=== PATIENT | female | born 1945 | race Caucasian/White ===

== ENCOUNTER → 2016-06-10 | Outpatient (CLI) | payer MEDICARE ==
--- NOTE | 2016-06-10 15:55 | REPMRS ---
Patient History Family history of colorectal cancer in mother and ovarian cancer in maternal aunt. The patient states she has not had a clinical breast exam in over a year. Patients prior mammograms were done over 10 years ago and no longer available Digital Mammo Screening Bilat: June 10, 2016 - Exam #: [id number] Bilateral CC and MLO view(s) were taken. Technologist: Darling Tom, Technologist FINDINGS: There are scattered fibroglandular densities. There is no evidence of cancer on this mammogram. Large coarse benign appearing calcifications are present. ASSESSMENT: BI-RADS/ACR category 2 mammogram. Benign finding(s). Recommendation Routine screening mammogram of both breasts in 1 year (for women over age 40). This mammogram was interpreted with the aid of an FDA-approved computer-aided dectection system. Electronically Signed By: Victoriano Charles MD 06/10/16 [id number]
== END ==
LOC: M RAD 15:03 → MERGE 15:30
PROVIDERS: ATTEND Family Medicine
DX: Z12.31 Encounter for screening mammogram for malignant neoplasm of breast (principal)

== ENCOUNTER → 2016-06-10 | Outpatient (CLI) | payer MEDICARE | LOC: M CARPUL 13:59 | PROVIDERS: ATTEND Family Medicine | DX: Z12.31 Encounter for screening mammogram for malignant neoplasm of breast (principal); R05 Cough | CPT/HCPCS: 94010; 94726; 94729; G0202 ==

== ENCOUNTER → 2016-08-12 | Outpatient (CLI) | payer MEDICARE ==
--- NOTE | 2016-08-12 16:06 | REP ---
Noncontrast CT study of the chest: Low-dose lung cancer screening study. History: Tobacco use. Comparison chest x-ray: 01/06/2006. Findings: There is a 3 mm noncalcified pulmonary nodular density in the periphery of the left upper lobe near the apex on page 14 of 109 at the today's study. No other pulmonary nodular density or mass lesion is seen. Lung silva are otherwise clear. No pleural effusion is seen. There is some left and right coronary artery vascular calcification. Scan is otherwise unremarkable. Impression: Positive study. 3 mm noncalcified nodule left upper lobe. By Fleischner's nurse Society criteria, followup chest CT study recommended in 12 months. Signed by Ari Tomlin MD 08/12/2016 05:45 P
== END ==
LOC: M RAD 12:44
PROVIDERS: ATTEND Family Medicine
DX: F17.200 Nicotine dependence, unspecified, uncomplicated (principal)

== ENCOUNTER → 2016-09-22 | Outpatient (CLI) | payer MEDICARE ==
[~2016-09-22] VITALS: Ht 167.6 cm; Wt 76.2 kg
[~2016-09-22] MED LIST: ATOR1TAB19 PO; LIDOCAINE 2% INJ 100 MG/5 ML SDV (FOR ANES.) As Ordered ONE; NS 1,000 ML IV SCH; PROPOFOL 200 MG/20 ML VIAL As Ordered ONE
--- NOTE | 2016-09-22 13:46 | ROOR ---
Patient Name: Katie Waldron Procedure Date: 09/22/2016 1:31 PM Date of : 1945 Age: 71 Room: [facility] Gender: Female Note Status: Finalized Procedure: Upper GI endoscopy Indications: Heartburn Providers: Darwin Soliz MD Referring MD: Elinor Casanova MD Requesting Provider: Medicines: Monitored Anesthesia Care Complications: No immediate complications. Procedure: Pre-Anesthesia Assessment: - The heart rate, respiratory rate, oxygen saturations, blood pressure, adequacy of pulmonary ventilation, and response to care were monitored throughout the procedure. The Endoscope was introduced through the mouth, and advanced to the second part of duodenum. The upper GI endoscopy was accomplished without difficulty. The patient tolerated the procedure well. Findings: The Z-line was irregular and was found 40 cm from the incisors. A small hiatal hernia was present. No other significant abnormalities were identified in a careful examination of the stomach. The exam of the duodenum was otherwise normal. Impression: - Z-line irregular, 40 cm from the incisors. - Small hiatal hernia. - No specimens collected. - The examination was otherwise normal. Recommendation: - Patient has a contact number available for emergencies. The signs and symptoms of potential delayed complications were discussed with the patient. Return to normal activities tomorrow. Written discharge instructions were provided to the patient. - High fiber diet. - Discharge patient to home. - Continue present medications. - Follow an antireflux regimen. - Return to referring physician. - The findings and recommendations were discussed with the patient's family. Darwin Soliz MD Darwin Soliz MD 09/22/2016 1:45:58 PM This report has been signed electronically. Number of Addenda: 0 Note Initiated On: 09/22/2016 1:31 PM Estimated Blood Loss: Estimated blood loss: none.
--- NOTE | 2016-09-22 14:08 | ROOR ---
Patient Name: Katie Waldron Procedure Date: 09/22/2016 1:32 PM Date of : 1945 Age: 71 Room: [facility] Gender: Female Note Status: Finalized Procedure: Colonoscopy to Cecum + Cold Snare Polypectomy Indications: Screening for colorectal malignant neoplasm Providers: Darwin Soliz MD Referring MD: Elinor Casanova MD Requesting Provider: Medicines: Monitored Anesthesia Care Complications: No immediate complications. Procedure: Pre-Anesthesia Assessment: - The heart rate, respiratory rate, oxygen saturations, blood pressure, adequacy of pulmonary ventilation, and response to care were monitored throughout the procedure. The Colonoscope was introduced through the anus and advanced to the cecum, identified by appendiceal orifice and ileocecal valve. The colonoscopy was performed without difficulty. The patient tolerated the procedure well. The quality of the bowel preparation was fair. Findings: The perianal and digital rectal examinations were normal. Non-bleeding internal hemorrhoids were found during retroflexion. The hemorrhoids were small and Grade I (internal hemorrhoids that do not prolapse). Multiple small and large-mouthed diverticula were found in the recto-sigmoid colon, sigmoid colon and descending colon. Multiple sessile polyps were found in the entire colon. The polyps were small in size. These polyps were removed with a cold snare. Resection and retrieval were complete. The exam was otherwise without abnormality on direct and retroflexion views. Impression: - Preparation of the colon was fair. - Non-bleeding internal hemorrhoids. - Diverticulosis in the recto-sigmoid colon, in the sigmoid colon and in the descending colon. - Multiple small polyps in the entire colon, removed with a cold snare. Resected and retrieved. - The examination was otherwise normal on direct and retroflexion views. - The exam was otherwise normal to the cecum. Recommendation: - Patient has a contact number available for emergencies. The signs and symptoms of potential delayed complications were discussed with the patient. Return to normal activities tomorrow. Written discharge instructions were provided to the patient. - High fiber diet. - Discharge patient to home. - Continue present medications. - Await pathology results. - Telephone GI clinic for pathology results in 1 week. - Check Portal Online for Path Results.([email or web address]) - Repeat colonoscopy for surveillance based on pathology results. - The findings and recommendations were discussed with the patient's family. Darwin Soliz MD Darwin Soliz MD 09/22/2016 2:08:03 PM This report has been signed electronically. Number of Addenda: 0 Note Initiated On: 09/22/2016 1:32 PM Estimated Blood Loss: Estimated blood loss: none.
[2016-09-22 14:35] VITALS: BP 128/69
== END | disposition home or self-care (01) ==
LOC: M OPP 12:36
PROVIDERS: ATTEND Internal Medicine Gastroenterology
DX: Z12.11 Encounter for screening for malignant neoplasm of colon (principal); D12.6 Benign neoplasm of colon, unspecified; K64.0 First degree hemorrhoids; K57.30 Diverticulosis of large intestine without perforation or abscess without bleeding; R12 Heartburn; K22.8 Other specified diseases of esophagus; K44.9 Diaphragmatic hernia without obstruction or gangrene; I10 Essential (primary) hypertension; R23.3 Spontaneous ecchymoses; R06.02 Shortness of breath; F17.210 Nicotine dependence, cigarettes, uncomplicated; Z80.3 Family history of malignant neoplasm of breast; Z80.41 Family history of malignant neoplasm of ovary; Z79.899 Other long term (current) drug therapy

== ENCOUNTER → 2016-10-07 | Outpatient (CLI) | payer MEDICARE ==
[~2016-10-07] MED LIST changes: -LIDOCAINE 2% INJ 100 MG/5 ML SDV (FOR ANES.) As Ordered ONE; -NS 1,000 ML IV SCH; -PROPOFOL 200 MG/20 ML VIAL As Ordered ONE
--- NOTE | 2016-10-08 09:00 | DEXA ---
AP SPINE L1 - L4 1.471 2.2 3.6 LT FEMUR TOTAL 0.927 -0.6 0.6 RT FEMUR TOTAL 0.909 -0.8 0.5 TOTAL BODY TOTAL OTHER DUAL FEMUR FRAX* ASSESSMENT Risk factors: Tobacco use. 10 year probability of fracture Major osteoporotic fracture 9.0 % Hip fracture 1.6 % COMMENTS: Normal bone densitometry of the spine. There is low bone density of the hips. FOLLOW-UP: Recommendation for the next bone density exam: 2 years. SHANNAN
== END ==
LOC: M WHC 09:24
PROVIDERS: ATTEND Family Medicine
DX: Z13.820 Encounter for screening for osteoporosis (principal); M89.9 Disorder of bone, unspecified

== ENCOUNTER → 2016-10-29 | Outpatient (REF) | payer MEDICARE | LOC: M SFHCPLAZ 08:12 | PROVIDERS: ATTEND Family Medicine | DX: E78.5 Hyperlipidemia, unspecified (principal) ==

== ENCOUNTER → 2017-04-23 | Outpatient (CLI) | payer MEDICARE ==
--- NOTE | 2017-04-26 06:46 | ECHO ---
DATE OF PROCEDURE: 04/23/2017 DATE OF : 1945 AGE: 71 GENDER: Female HEIGHT: 67 inches WEIGHT: 152 pounds BODY SURFACE AREA: 31.8 m2 OUTPATIENT REFERRING PHYSICIAN: Dr. Elinor Casanova INDICATION: Murmur. MEASUREMENTS: 2-D Measurements: RV: 2.4 cm LV: 4.2 cm Septum: 1.0 cm Posterior wall: 1.0 cm Aortic root: 2.5 cm LA: 3.4 cm LVEF: 65% Doppler Measurements: AV: 2.8 m/s LVOT: 0.84 m/s LVOT diameter 2.1 cm MV: E 120 A 110 EA ratio 1.1 Early mitral deceleration time: 261 ms E prime: 7.1 A prime: 6 E/E prime ratio: 16.3 PV: 0.8 m/s Pulmonary artery acceleration time: 138 ms RVSP: 30 mmHg IVC: 2.0 cm COMMENTS: Normal sinus rhythm without intraventricular conduction disturbance. Normal cardiac chamber sizes and wall thickness. On real-time imaging from the parasternal and apical projections wall motion was symmetrical and normal to hyperkinetic. Mildly thickened mitral annulus, but normal leaflet thickness and excursion with no posterior systolic buckling. Three equal size aortic cusps were moderately thickened with reduced cusp separation. Normal aortic root size. No apparent intracardiac mass or pericardial effusion. Color flow Doppler study taken from the parasternal and projection showed mild aortic, mild to moderate mitral and mild tricuspid insufficiency. Guided continuous wave Doppler of her aortic valve and pulsed Doppler study of her LV outflow tract taken from the apical long axis and five chamber projection showed a significantly increased peak systolic velocity. The mean left ventricle outflow tract gradient was 20 mmHg with a dimensionless index of 0.29, all in keeping with a moderate degree of calcific aortic stenosis. Pulsed and continuous wave Doppler of her LV inflow tract taken from the apical four-chamber projection showed normal diastolic filling velocities against mitral stenosis. The filling pattern was normal, but her early mitral deceleration time was prolonged and tissue Doppler also supported a degree of impaired LV diastolic function with at least mildly elevated mean left atrial pressure. Pulsed and continuous wave Doppler of her pulmonary trunk showed a normal peak systolic velocity against RV outflow tract obstruction. Her pulmonary artery acceleration time was normal against an elevated pulmonary vascular resistance. Guided continuous wave Doppler of her tricuspid valve allowed our estimation of her right ventricular systolic pressure (upper limits of normal). Her inferior vena cava was of normal size with fairly normal respiratory collapse against an elevated central venous pressure. CONCLUSIONS: Moderate calcific aortic stenosis with mild insufficiency. Mild mitral annular calcification without inflow tract obstruction, but mild-moderate insufficiency. Normal aortic root size. Normal left ventricular size, wall thickness and hyperkinetic wall motion. Normal left atrial size with Doppler signs of an impairment of LV diastolic function and at least mildly elevated mean left atrial pressure. Normal right heart chamber sizes and wall motion with estimated pulmonary arterial pressure upper limits of normal to mildly increased. Normal IVC size against an elevated central venous pressure. We would recommend a followup study in 1-2 years time to reassess her aortic valve.
== END ==
LOC: M CARPUL 13:37
PROVIDERS: ATTEND Family Medicine
DX: R01.1 Cardiac murmur, unspecified (principal); R93.1 Abnormal findings on diagnostic imaging of heart and coronary circulation

== ENCOUNTER → 2017-10-01 | Outpatient (CLI) | payer MEDICARE | LOC: M WHC 10:25 | DX: Z12.31 Encounter for screening mammogram for malignant neoplasm of breast (principal) | CPT/HCPCS: 77067 ==

== ENCOUNTER → 2017-10-07 | Outpatient (CLI) | payer MEDICARE | LOC: M RAD 13:03 | DX: F17.210 Nicotine dependence, cigarettes, uncomplicated (principal) | CPT/HCPCS: G0297 ==

== ENCOUNTER → 2017-12-13 | Outpatient (CLI) | payer MEDICARE | LOC: M RAD 15:52 | DX: R20.0 Anesthesia of skin (principal); I20.8 Other forms of angina pectoris; F17.210 Nicotine dependence, cigarettes, uncomplicated; H35.3130 Nonexudative age-related macular degeneration, bilateral, stage unspecified | CPT/HCPCS: 70551 ==

== ENCOUNTER → 2018-09-27 | Outpatient (REF) | payer MEDICARE | LOC: M SFHCPLAZ 09:02 | PROVIDERS: ATTEND Family Medicine | DX: R73.01 Impaired fasting glucose (principal) ==

== ENCOUNTER → 2018-10-03 | Outpatient (CLI) | payer MEDICARE ==
--- NOTE | 2018-10-03 16:07 | REP ---
REASON: Tobacco abuse. All priors were reviewed. As per the protocol only lung window images were sent to the read station for interpretation. The 3 mm sized nodule seen in the left upper lobe is completely stable. There are no new abnormal nodules, masses, or opacities. Grossly the mediastinal, pulmonary terese, imaged upper abdomen, and imaged osseous structures are unchanged. IMPRESSION: Stable chest CT as described above. Lung RADS category 2. Electronically Signed by Erwin Terrazas DO 10/03/2018 04:54 P
== END ==
LOC: M RAD 10:16
PROVIDERS: ATTEND Family Medicine
DX: Z12.2 Encounter for screening for malignant neoplasm of respiratory organs (principal); Z87.891 Personal history of nicotine dependence

== ENCOUNTER → 2018-10-19 | Outpatient (CLI) | payer MEDICARE ==
--- NOTE | 2018-10-19 12:27 | REPMRS ---
Patient History The patient states she has not had a clinical breast exam in over a year. Patient is postmenopausal. Family history of colorectal cancer in mother, ovarian cancer in maternal aunt, colorectal cancer at age 50 or over in sister. No Hormone Replacement Therapy Digital Woman Screen Mammo: October 19, 2018 - Exam #: [id number] Bilateral CC and MLO view(s) were taken. Technologist: Lori Caal, Technologist Prior study comparison: October 01, 2017, digital woman screen mammo performed at [facility]. June 10, 2016, bilateral digital mammo screening bilat, performed at [facility]. FINDINGS: There are scattered fibroglandular densities. There is a moderate amount of residual fibroglandular tissue which is fairly symmetric. There is no interval development of dominant mass, architectural distortion, or clustered microcalcification typical of malignancy. There has been no change in the appearance of the mammogram from the prior studies. 3-D tomosynthesis shows no additional findings. Assessment: BI-RADS/ACR category 1 mammogram. Negative Mammogram. Recommendation Routine screening mammogram of both breasts in 1 year (for women over age 40). This patient's Lifetime Breast Cancer RIsk is estimated at 2.0 %. This mammogram was interpreted with the aid of an FDA-approved computer-aided dectection system. Electronically Signed By: Sage Tomlin MD 10/19/18 1849
== END ==
LOC: M WHC 09:57
PROVIDERS: ATTEND Family Medicine
DX: Z12.31 Encounter for screening mammogram for malignant neoplasm of breast (principal); Z78.0 Asymptomatic menopausal state

== ENCOUNTER 2018-11-15 10:56 | Emergency (ER) | payer MEDICARE ==
[~2018-11-15] VITALS: Ht 167.6 cm; Wt 71.4 kg
[2018-11-15 12:12] LABS: BASO % 0.6 % (0.0-1.0); EOS # 0.1 10^3/uL (0.0-0.50); EOS % 1.4 % (0.0-3.0); HEMATOCRIT 36.9 % (36.0-47.0); LYMPH # 1.7 10^3/uL (1.5-4.5); LYMPH % 25.8 % (24.0-44.0); MEAN CORPUSCULAR HEMOGLOBIN 27.5 pg (27.0-33.0); MEAN CORPUSCULAR HGB CONC 32.5 g/dl (32.0-36.5); MEAN CORPUSCULAR VOLUME 84.4 fl (80.0-96.0); MONO # 0.3 10^3/uL (0.0-0.8); MONO % 5.3 % (0.0-5.0); NEUTROPHILS # 4.3 10^3/uL (1.8-7.7); NEUTROPHILS % 66.7 % (36.0-66.0); PLATELET COUNT, AUTOMATED 192 10^3/uL (150-450); RED BLOOD COUNT 4.37 10^6/uL (4.00-5.40); WHITE BLOOD COUNT 6.4 10^3/uL (4.0-10.0)
--- NOTE | 2018-11-15 12:44 | REP ---
CHEST, TWO VIEWS: No comparison. Two views of the chest are performed. There is no acute infiltrate or pulmonary edema. The heart is normal in size. There is a calcification of the thoracic aorta. The mediastinal silhouette is unremarkable. There are minor degenerative changes of the spine. IMPRESSION: No acute pulmonary disease. Electronically Signed by Victoriano Charles MD 11/15/2018 07:36 P
[2018-11-15] MEDS ORDERED: ATOR40TA75 (12:51)
[2018-11-15] MEDS ORDERED: CLOP75TA2 (12:51)
[2018-11-15] MEDS ORDERED: AMLO5TAB6 (12:51)
[2018-11-15] MEDS ORDERED: OMEP-218 (12:51)
[2018-11-15] MEDS ORDERED: METF500T4 (12:51)
[2018-11-15] MEDS ORDERED: NITR0.4S14 (12:51)
[2018-11-15] MEDS ORDERED: ISOS30TA4 (12:51)
[2018-11-15] MEDS ORDERED: SYST1SOL4 (12:51)
[2018-11-15] MEDS ORDERED: BISO5TAB5 (12:51)
[2018-11-15 12:52] LABS: ALBUMIN 3.6 GM/DL (3.2-5.2); ALT/SGPT 15 U/L (12-78); BILIRUBIN,DIRECT 0.2 MG/DL (0.0-0.2); BILIRUBIN,TOTAL 0.4 MG/DL (0.2-1.0); BLOOD UREA NITROGEN 18 MG/DL (7-18); CARBON DIOXIDE LEVEL 27 MEQ/L (21-32); CHLORIDE LEVEL 105 MEQ/L (98-107); CK-MB VALUE MASS 1.5 NG/ML (<3.6); CPK CREATINE PHOSPHOKINASE 51 U/L (26-192); CREATININE FOR GFR 0.97 MG/DL (0.55-1.30); FREE T4 1.19 NG/DL (0.76-1.46); GLOMERULAR FILTRATION RATE > 60.0 (>39); GLUCOSE, FASTING 140 MG/DL (70-100); LIPASE 69 U/L (73-393); MB/CK RELATIVE INDEX 2.94 (< OR =4); POTASSIUM SERUM 4.4 MEQ/L (3.5-5.1); SODIUM LEVEL 139 MEQ/L (136-145); TOTAL PROTEIN 7.3 GM/DL (6.4-8.2); TROPONIN I 0.02 NG/ML (< 0.10)
[2018-11-15] MEDS ORDERED: KETOROLAC 30 MG/ML VIAL (J1885) IV ONE (13:15)
--- NOTE | 2018-11-15 13:43 | REP ---
CT Head without contrast HISTORY: Headache COMPARISON: Or 12/13/2017 A small area of decreased attenuation is present in the left cerebellum. This represents an old infarction. Areas of decreased attenuation are present in the periventricular white matter. This represents small-vessel ischemic disease. There is no intraparenchymal hemorrhage, acute infarct, mass or midline shift. The ventricular system and cortical sulci are dilated consistent with minimal volume loss. There is no extra cerebral collection. There is no fracture. The visualized sinuses are clear. IMPRESSION: 1. 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 2. Small vessel ischemic disease. 3. Minimal volume loss. Electronically Signed by Sean Vega MD 11/15/2018 01:34 P
[2018-11-15] MEDS ORDERED: amLODIPine 5 MG TAB PO ONE (15:45)
[2018-11-15] MEDS ORDERED: LISI-542 PO (15:50)
[2018-11-15] MEDS ORDERED: AMLO10TA5 PO (15:50)
[2018-11-15] MEDS ORDERED: TYLETAB14 PO (15:52)
[2018-11-15] MEDS ORDERED: ACET1TAB55 PO (15:53)
[2018-11-15 16:02] VITALS: BP 165/71
[2018-11-15 16:25] VITALS: BP 168/90
--- NOTE | 2018-11-16 16:07 | ECGEPIP ---
[facility] - ED Test Date: 2018-11-15 Pat Name: ANAI GEORGES Department: Room: - Gender: Female Tow Operator: IGOR : 1945 Requested By: DELVIN Butler Order Number: [id number] Reading MD: Ruby Sarabia Measurements Intervals [place] Rate: 59 P: 38 MI: 164 QRS: 16 QRSD: 87 T: 154 QT: 418 QTc: 415 Interpretive Statements SINUS BRADYCARDIA POSSIBLE RIGHT VENTRICULAR CONDUCTION DELAY ST DEVIATION AND MODERATE T-WAVE ABNORMALITY, CONSIDER LATERAL ISCHEMIA, CLINICAL CORRELATION NO PRIOR FOR COMPARISON Electronically Signed on 11-16-2018 16:07:26 EDT by Ruby Sarabia
== END 2018-11-15 16:32 | disposition home or self-care (01) ==
LOC: M ED 10:56
DX: I10 Essential (primary) hypertension (principal); R51 Headache; R00.1 Bradycardia, unspecified; R01.1 Cardiac murmur, unspecified; E11.9 Type 2 diabetes mellitus without complications; E78.5 Hyperlipidemia, unspecified; F32.9 Major depressive disorder, single episode, unspecified; R91.1 Solitary pulmonary nodule; K44.9 Diaphragmatic hernia without obstruction or gangrene; H35.30 Unspecified macular degeneration; Z86.73 Personal history of transient ischemic attack (TIA), and cerebral infarction without residual deficits; F17.200 Nicotine dependence, unspecified, uncomplicated; Z79.899 Other long term (current) drug therapy; Z79.02 Long term (current) use of antithrombotics/antiplatelets; Z79.84 Long term (current) use of oral hypoglycemic drugs
CPT/HCPCS: 36415; 70450; 71046; 80048; 80076; 82550; 82553; 83690; 84439; 84443; 84484; 85025; 93005; 93041; 94760; 96374; 99285; J1885

== ENCOUNTER → 2018-11-25 | Outpatient (REF) | payer MEDICARE ==
[~2018-11-25] MED LIST changes: +ACET1TAB55 PO; +AMLO10TA5 PO; +AMLO5TAB6; +ATOR40TA75; +BISO5TAB5; +CLOP75TA2; +ISOS30TA4; +LISI-542 PO; +METF500T4; +NITR0.4S14; +OMEP-218; +SYST1SOL4; +TYLETAB14 PO
[2018-11-25 14:10] LABS: CALCIUM LEVEL 9.3 MG/DL (8.8-10.2); CREATININE FOR GFR 1.03 MG/DL (0.55-1.30); GLOMERULAR FILTRATION RATE 56.2 (>39); POTASSIUM SERUM 4.3 MEQ/L (3.5-5.1)
== END ==
LOC: M SFHCPLAZ 11:14
PROVIDERS: ATTEND Family Medicine
DX: I10 Essential (primary) hypertension (principal)

== ENCOUNTER → 2018-12-29 | Outpatient (CLI) | payer MEDICARE ==
[~2018-12-29] MED LIST changes: +ISOVUE-370 76% 100ML VIAL (Q9967) As Ordered ONE
--- NOTE | 2018-12-29 11:31 | REPVR ---
EXAM: CT Angiography Neck With Contrast EXAM DATE/TIME: 12/29/2018 9:48 AM CLINICAL HISTORY: 73 years old, female; Condition or disease; Occlusion or stenosis of cerebral arteries; Additional info: Occlusion and stenosis of bilateral carotid arteries TECHNIQUE: Imaging protocol: Axial computed tomographic angiography images of the neck with intravenous contrast using CT angiography protocol. Coronal and sagittal reformatted images were created and reviewed. 3D rendering: MIP and 3D reconstructed images were created and reviewed. Radiation optimization: All CT scans at this facility use at least one of these dose optimization techniques: automated exposure control; mA and/or kV adjustment per patient size (includes targeted exams where dose is matched to clinical indication); or iterative reconstruction. Contrast material: ISOVUE 370;Contrast volume: 100 ml;Contrast route: IV; COMPARISON: No relevant prior studies available. FINDINGS: VASCULATURE: Right common carotid artery: There are mild calcified atherosclerotic changes involving the right common carotid artery bifurcation. Right internal carotid artery: See Left Internal Carotid Artery Finding. Right external carotid artery: Unremarkable. No occlusion or stenosis of the origin. Right vertebral artery: Unremarkable. No stenosis. No dissection or occlusion. Left common carotid artery: There are moderate calcified atherosclerotic changes involving the left common carotid artery bifurcation. Left internal carotid artery: There are severe calcified atherosclerotic changes involving the origin of the left internal carotid artery, accounting for approximately 98% stenosis. It is difficult to confirm with certainty whether this artery is patent or occluded. The left cervical internal carotid artery distal to this critical stenosis is patent but has diminished caliber throughout its course. Left external carotid artery: Unremarkable. No occlusion or stenosis of the origin. Left vertebral artery: Unremarkable. No stenosis. No dissection or occlusion. NECK: Bones/joints: No acute fracture. Soft tissues: Normal. No significant soft tissue swelling. IMPRESSION: There are severe calcified atherosclerotic changes involving the origin of the left internal carotid artery, accounting for approximately 98% stenosis. It is difficult to confirm with certainty whether this artery is patent or occluded. The left cervical internal carotid artery distal to this critical stenosis is patent but has diminished caliber throughout its course. Electronically signed by: Bright Simms On 12/29/2018 11:30:42 AM
--- NOTE | 2018-12-29 11:35 | REPVR ---
EXAM: CT Angiography Head With Contrast EXAM DATE/TIME: 12/29/2018 9:48 AM CLINICAL HISTORY: 73 years old, female; Condition or disease; Occlusion or stenosis of cerebral arteries; Additional info: Occlusion and stenosis of bilateral carotid arteries TECHNIQUE: Imaging protocol: Computed tomographic angiography images of the head with intravenous contrast using CT angiography protocol. Coronal and sagittal reformatted images were created and reviewed. 3D rendering: MIP and 3D reconstructed images were created and reviewed. Radiation optimization: All CT scans at this facility use at least one of these dose optimization techniques: automated exposure control; mA and/or kV adjustment per patient size (includes targeted exams where dose is matched to clinical indication); or iterative reconstruction. Contrast material: ISOVUE 370;Contrast volume: 100 ml;Contrast route: IV; COMPARISON: CT Head without contrast 11/15/2018 1:10 PM FINDINGS: Right internal carotid artery: The left intracranial internal carotid artery is smaller in caliber compared to the right, likely due to the critical stenosis/occlusion at its origin. There are moderate calcified atherosclerotic changes of the cavernous and supraclinoid right internal carotid artery. It is difficult to accurately assess the degree of underlying stenosis due to the extensive calcification. Right anterior cerebral artery: Unremarkable. No occlusion or significant stenosis. No aneurysm. Right middle cerebral artery: Unremarkable. No occlusion or significant stenosis. No aneurysm. Right posterior cerebral artery: There is origin of the right posterior cerebral artery. Right vertebral artery: Unremarkable. No occlusion or significant stenosis. No aneurysm. Left internal carotid artery: There are moderate calcified atherosclerotic changes of the cavernous and supraclinoid left internal carotid artery. It is difficult to accurately assess the degree of underlying stenosis due to the extensive calcification. Left anterior cerebral artery: Unremarkable. No occlusion or significant stenosis. No aneurysm. Left middle cerebral artery: Unremarkable. No occlusion or significant stenosis. No aneurysm. Left posterior cerebral artery: There is origin of the left posterior cerebral artery. Left vertebral artery: Unremarkable. No occlusion or significant stenosis. No aneurysm. Basilar artery: Unremarkable. No occlusion or significant stenosis. No aneurysm. IMPRESSION: 1. The left intracranial internal carotid artery is smaller in caliber compared to the right, likely due to the critical stenosis/occlusion at its origin. 2. There are moderate calcified atherosclerotic changes of the cavernous and supraclinoid right internal carotid artery. It is difficult to accurately assess the degree of underlying stenosis due to the extensive calcification. 3. There are moderate calcified atherosclerotic changes of the cavernous and supraclinoid left internal carotid artery. It is difficult to accurately assess the degree of underlying stenosis due to the extensive calcification. Electronically signed by: Bright Simms On 12/29/2018 11:35:27 AM
== END ==
LOC: M RAD 09:22
PROVIDERS: ATTEND Surgery Vascular Surgery
DX: I65.23 Occlusion and stenosis of bilateral carotid arteries (principal)
CPT/HCPCS: 70496; 70498; Q9967

== ENCOUNTER → 2019-04-20 | Outpatient (REF) | payer MEDICARE ==
[~2019-04-20] MED LIST changes: -BISO5TAB5; +BISO5TAB9; -ISOVUE-370 76% 100ML VIAL (Q9967) As Ordered ONE; +METF-791; -METF500T4
[2019-04-20 14:17] LABS: HEMOGLOBIN A1c 6.4 %
[2019-04-20 14:23] LABS: CALCIUM LEVEL 9.2 MG/DL (8.8-10.2); CREATININE FOR GFR 1.05 MG/DL (0.55-1.30); POTASSIUM SERUM 4.7 MEQ/L (3.5-5.1)
[2019-04-20 14:34] LABS: MALB URINE SIEMENS 10.2 MG/L; MAU/CREAT RATIO 9.2 MCG/MG (0.0-30.0)
== END ==
LOC: M SFHCPLAZ 11:56
PROVIDERS: ATTEND Family Medicine
DX: E11.9 Type 2 diabetes mellitus without complications (principal); I10 Essential (primary) hypertension

== ENCOUNTER → 2019-07-24 | Outpatient (CLI) | payer MEDICARE ==
[~2019-07-24] MED LIST changes: +BISO5TAB14; -BISO5TAB9
--- NOTE | 2019-07-24 15:33 | REPPI ---
Clinical: Cough . Comparison: 11/15/2018 . Technique: PA and lateral. Findings: The mediastinum and cardiac silhouette are normal. The lung silva are clear and without acute consolidation, effusion, or pneumothorax. The skeletal structures are intact and normal. Evidence of prior left thyroidectomy. Impression: 1. No acute cardiopulmonary process. Electronically Signed by James Pringle MD 07/24/2019 03:24 P
== END ==
LOC: M PLALAB 15:12 → M PLAIMG 15:12
PROVIDERS: ATTEND Nurse Practitioner Adult Health
DX: R05 Cough (principal); E89.0 Postprocedural hypothyroidism

== ENCOUNTER → 2019-10-10 | Outpatient (CLI) | payer MEDICARE ==
[~2019-10-10] MED LIST changes: -METF-791; +METF-838
--- NOTE | 2019-10-10 10:34 | REPMRS ---
Patient History The patient states she has not had a clinical breast exam in over a year. Family history of colorectal cancer in mother, ovarian cancer in maternal aunt, colorectal cancer at age 50 or over in sister. No Hormone Replacement Therapy Digital Woman Screen Mammo: October 10, 2019 - Exam #: [id number] Bilateral CC and MLO view(s) were taken. Technologist: Danni Nina, Technologist Prior study comparison: October 19, 2018, bilateral digital woman screen mammo performed at [facility]. October 01, 2017, digital woman screen mammo performed at [facility]. June 10, 2016, bilateral digital mammo screening bilat, performed at [facility]. FINDINGS: There are scattered fibroglandular densities. The Volpara volumetric breast density category is:B. There has been no change in the appearance of the mammogram from the prior studies. There is a mild amount of scattered fibroglandular density which is fairly symmetric. There is no interval development of dominant mass, architectural distortion, or grouped microcalcification suggestive of malignancy. 3-D tomosynthesis shows no additional findings. Assessment: BI-RADS/ACR category 1 mammogram. Negative Mammogram. Recommendation Routine screening mammogram of both breasts in 1 year (for women over age 40). This patient's Lifetime Breast Cancer Risk is estimated at 1.8 %. This mammogram was interpreted with the aid of an FDA-approved computer-aided dectection system. Electronically Signed By: Sage Tomlin MD 10/10/19 [id number]
== END ==
LOC: M WHC 09:44
PROVIDERS: ATTEND Family Medicine
DX: Z12.31 Encounter for screening mammogram for malignant neoplasm of breast (principal); Z80.0 Family history of malignant neoplasm of digestive organs; Z80.41 Family history of malignant neoplasm of ovary

== ENCOUNTER → 2020-02-21 | Outpatient (CLI) | payer MEDICARE ==
[~2020-02-21] MED LIST changes: -AMLO10TA5 PO; +AMLO1TAB24; +AMLO1TAB25 PO; -AMLO5TAB6
[2020-02-21 11:40] LABS: BLOOD UREA NITROGEN 18 MG/DL (7-18); CALCIUM LEVEL 9.4 MG/DL (8.8-10.2); CARBON DIOXIDE LEVEL 27 MEQ/L (21-32); CHLORIDE LEVEL 102 MEQ/L (98-107); GLOMERULAR FILTRATION RATE > 60.0 (>39); GLUCOSE, FASTING 125 MG/DL (70-100); POTASSIUM SERUM 4.2 MEQ/L (3.5-5.1); SODIUM LEVEL 134 MEQ/L (136-145)
[2020-02-21 12:09] LABS: HEMOGLOBIN A1c 5.9 %
[2020-02-21 14:23] LABS: MAU/CREAT RATIO 17.1 MCG/MG (0.0-30.0)
== END ==
LOC: M PLALAB 07:57
PROVIDERS: ATTEND Family Medicine
DX: E11.9 Type 2 diabetes mellitus without complications (principal); I10 Essential (primary) hypertension

== ENCOUNTER → 2020-03-07 | Outpatient (CLI) | payer MEDICARE ==
--- NOTE | 2020-03-14 08:53 | REP ---
CT CHEST WITHOUT CONTRAST: LOW-DOSE SCREENING EXAM HISTORY: Current smoker. COMPARISON SCREENING EXAMS: 10/03/2018, 10/07/2017, and 08/12/2016. CT FINDINGS: Preliminary digital weather forecaster radiograph is unremarkable. There is a 2-3 mm stable nodule in the left lung apex, which today appears to contain calcification consistent with a granuloma. This is unchanged from 2017. There is a focal pleural-based soft tissue density 3 mm in diameter posteriorly in the left upper lobe on Page 27 of 107 in Series 201 of todays study. This is also unchanged from the 2017 prior study. No new pulmonary nodule is appreciated. No mass or infiltrate is seen. Vascular calcification is again noted. IMPRESSION: Stable lung-RADS Category 1 findings. Repeat screening study suggested in one year. MTDD
== END ==
LOC: M RAD 12:08
PROVIDERS: ATTEND Family Medicine
DX: Z12.2 Encounter for screening for malignant neoplasm of respiratory organs (principal); Z87.891 Personal history of nicotine dependence

== ENCOUNTER → 2020-09-23 | Outpatient (REF) | payer MEDICARE ==
[~2020-09-23] MED LIST changes: +ISOS1TAB35; -ISOS30TA4; -LISI-542 PO; +LISI-898 PO
[2020-09-23 14:49] LABS: HEMOGLOBIN A1c 6.2 %
[2020-09-23 16:45] LABS: CALCIUM LEVEL 9.8 MG/DL (8.8-10.2); CHOLESTEROL RISK RATIO 2.153 (<5); CREATININE FOR GFR 0.99 MG/DL (0.55-1.30); GLOMERULAR FILTRATION RATE 58.5 (>39); POTASSIUM SERUM 4.9 MEQ/L (3.5-5.1)
== END ==
LOC: M SFHCPLAZ 11:06
PROVIDERS: ATTEND Family Medicine
DX: E78.2 Mixed hyperlipidemia (principal); E11.9 Type 2 diabetes mellitus without complications; I10 Essential (primary) hypertension

== ENCOUNTER → 2020-10-10 | Outpatient (CLI) | payer MEDICARE ==
--- NOTE | 2020-10-10 12:29 | REPMRS ---
Patient History The patient states she has not had a clinical breast exam in over a year. Patient is postmenopausal. Family history of colorectal cancer in mother, ovarian cancer in maternal aunt, colorectal cancer at age 73 in sister. No Hormone Replacement Therapy Patient states no breast complaints today. Patient has signed MRS History Sheet. Digital Woman Screen Mammo: October 10, 2020 - Exam #: [id number] Bilateral CC and MLO view(s) were taken. Technologist: Lori Caal, Technologist Prior study comparison: October 10, 2019, bilateral digital woman screen mammo performed at [facility]. October 19, 2018, bilateral digital woman screen mammo performed at [facility]. FINDINGS: There are scattered fibroglandular densities. Screening. Digital screening (2D) mammography was performed bilaterally in the CC and MLO projections. Additionally, breast tomosynthesis (3D mammography) was performed bilaterally in the CC and MLO projections. Todays exam was compared to the prior exams(s). By history, the patient has no complaints of a palpable breast abnormality or other significant breast complaints. The breasts are unchanged in size and shape. There are no crystal-soft tissue densities or spiculated masses. There is no internal architectural distortion.Once again, stable benign appearing calcifications are seen. There are no suspicious crystal-calcific clusters. Skin thickening or nipple retraction is not present. IMPRESSION: BI-RADS Category 2- Benign Findings(s). There is no evidence of malignant alteration of the breasts. Followup examination recommended in one year. The Volpara volumetric breast density category is B, there are scattered areas of fibroglandular density. This mammogram was read with the assistance of [employer],an FDA approved computer aided detection system for mammography. The lifetime Tyrer-Cuzick score is 1.7% Negative x-ray reports should not delay surgical consultation if a dominant or clinically suspicious mass is present. Not all breast cancers can be identified by mammography. Therefore, we recommend that you continue to perform regular breast self-examination and physical examination and then promptly contact your physician of any concerns or changes. Adenosis and dense breasts may obscure an underlying neoplasm. Assessment: BI-RADS/ACR category 2 mammogram. Benign Findings. Recommendation Routine screening mammogram of both breasts in 1 year. Electronically Signed By: Erwin Terrazas DO 10/10/20 0307
== END ==
LOC: M WHC 10:31
PROVIDERS: ATTEND Family Medicine
DX: Z12.31 Encounter for screening mammogram for malignant neoplasm of breast (principal)

== ENCOUNTER → 2020-11-06 | Outpatient (CLI) | payer MEDICARE ==
--- NOTE | 2020-11-07 13:38 | ECHO ---
ECHOCARDIOGRAM DATE OF PROCEDURE: 11/06/2020 Age: 75 Gender: Height: Weight: REFERRING PROVIDER: Dr. Yamilex Casanova. PATIENT LOCATION: Outpatient. REASON FOR STUDY: Aortic valve disease. 2D MEASUREMENTS: IVS 0.9 cm LV 4.7 cm LVPW 1.0 cm LA 3.4 cm Aorta 3.2 cm DOPPLER MEASUREMENT Peak velocity across the aortic valve 3.2 m/s Peak velocity across the LVOT 0.8 m/s Peak gradient across the aortic valve 42 mmHg Mean gradient across the aortic valve 24 mmHg Mitral E 0.88 Mitral A 0.96 with a ratio of 0.9 2D COMMENTS: 1. Normal left ventricular size, wall thickness, and normal global left ventricular systolic function. The estimated left ventricular systolic ejection fraction is 65%. 2. Normal left atrium. Normal right atrium and right ventricle. 3. The atrial septum appeared to be normal without evidence of defect or shunt. 4. Normal aortic root. 5. No pericardial effusion seen. 6. Moderately calcified aortic valve with decreased leaflet excursion. Mildly calcified mitral annulus with normal anterior mitral valve leaflet motion. Normal tricuspid valve. The pulmonic valve appeared to be normal in limited views. The proximal pulmonary artery branches were not well visualized. 7. The inferior vena cava was not visualized. DOPPLER: Detects mild aortic regurgitation and trace mitral regurgitation. Could not assess the pulmonary artery systolic pressure. Abnormal relaxation pattern was noted across the mitral valve leaflets as well as the mitral valve annulus consistent with features of grade 1 left ventricular diastolic dysfunction. IMPRESSION: 1. Normal global left ventricular systolic function. There were some features of grade 1 left ventricular diastolic dysfunction manifested by abnormal relaxation. 2. Aortic valve sclerosis with mild aortic regurgitation and moderate aortic stenosis. 3. Mitral annulus calcification with trace mitral regurgitation. 4. The inferior vena cava was not well visualized. 5. I would recommend to repeat the echocardiogram in about 12 months if patient is symptomatic. cc: YAMILEX CASANOVA MD
== END ==
LOC: M CARPUL 10:32
PROVIDERS: ATTEND Family Medicine
DX: I35.0 Nonrheumatic aortic (valve) stenosis (principal)

== ENCOUNTER → 2021-04-23 | Outpatient (CLI) | payer MEDICARE ==
[2021-04-23 11:22] LABS: BLOOD UREA NITROGEN 15 MG/DL (7-18); CALCIUM LEVEL 9.3 MG/DL (8.8-10.2); CARBON DIOXIDE LEVEL 28 MEQ/L (21-32); CHLORIDE LEVEL 105 MEQ/L (98-107); CREATININE FOR GFR 0.94 MG/DL (0.55-1.30); GLOMERULAR FILTRATION RATE > 60.0 (>39); GLUCOSE, FASTING 122 MG/DL (70-100); POTASSIUM SERUM 4.6 MEQ/L (3.5-5.1); SODIUM LEVEL 137 MEQ/L (136-145)
[2021-04-23 11:37] LABS: CREATININE, URINE 99.9 MG/DL; MALB URINE SIEMENS 16.7 MG/L; MAU/CREAT RATIO 16.7 MCG/MG (0.0-30.0)
== END ==
LOC: M PLALAB 08:29
PROVIDERS: ATTEND Family Medicine
DX: E11.9 Type 2 diabetes mellitus without complications (principal); I10 Essential (primary) hypertension

== ENCOUNTER → 2021-05-22 | Outpatient (CLI) | payer MEDICARE ==
--- NOTE | 2021-05-22 11:44 | REP ---
INDICATION: SMOKER COMPARISON: 03/07/2020 TECHNIQUE: Axial noncontrast images from the thoracic inlet to the upper abdomen using low-dose lung screening technique (LDCT). FINDINGS: Lung silva are well aerated and essentially clear. No acute consolidation, suspicious nodule or mass. No effusion. No pneumothorax. Tracheobronchial tree is patent. IMPRESSION: Lung-RADS category 1. Management recommendations include annual low-dose CT surveillance. <Electronically signed by James Pringle > 05/22/21 [id number]
== END ==
LOC: M RAD 11:04
PROVIDERS: ATTEND Family Medicine
DX: Z12.2 Encounter for screening for malignant neoplasm of respiratory organs (principal); F17.210 Nicotine dependence, cigarettes, uncomplicated

== ENCOUNTER 2021-07-07 13:16 | Emergency (ER) | payer MEDICARE ==
[~2021-07-07] VITALS: Ht 167.6 cm; Wt 69.1 kg
[~2021-07-07 13:16] MED LIST changes: -LISI-898 PO; +LISI5TAB11 PO; +OMEP-173; -OMEP-218
[2021-07-07] MEDS ORDERED: RANO500T2 PO (13:38)
[2021-07-07 18:57] LABS: BASO % 0.5 % (0.0-1.0); EOS # 0.1 10^3/uL (0.0-0.5); HEMATOCRIT 40.4 % (36.0-47.0); HEMOGLOBIN 13.2 g/dl (12.0-15.5); LYMPH # 2.3 10^3/uL (1.5-5.0); LYMPH % 29.7 % (24.0-44.0); MEAN CORPUSCULAR HEMOGLOBIN 26.8 pg (27.0-33.0); MEAN CORPUSCULAR HGB CONC 32.7 g/dl (32.0-36.5); MEAN CORPUSCULAR VOLUME 82.1 fl (80.0-96.0); MONO # 0.5 10^3/uL (0.0-0.8); MONO % 5.8 % (2.0-8.0); NEUTROPHILS # 4.8 10^3/uL (1.5-8.5); NEUTROPHILS % 62.1 % (36.0-66.0); PLATELET COUNT, AUTOMATED 283 10^3/uL (150-450); RED BLOOD COUNT 4.92 10^6/uL (4.00-5.40); WHITE BLOOD COUNT 7.8 10^3/uL (4.0-10.0)
[2021-07-07 19:17] LABS: MB/CK RELATIVE INDEX 4.65 (< OR =4)
[2021-07-07 19:24] LABS: ALBUMIN 3.9 GM/DL (3.2-5.2); BILIRUBIN,DIRECT 0.2 MG/DL (0.0-0.2); BILIRUBIN,TOTAL 0.5 MG/DL (0.2-1.0); CALCIUM LEVEL 9.3 MG/DL (8.8-10.2); CREATININE FOR GFR 1.13 MG/DL (0.55-1.30); GLOMERULAR FILTRATION RATE 50.2 (>39); POTASSIUM SERUM 4.2 MEQ/L (3.5-5.1); THYROID STIMULATING HORMONE 2.3 uIU/ML (0.358-3.740); TOTAL PROTEIN 7.5 GM/DL (6.4-8.2)
[2021-07-07] MEDS ORDERED: ACETAMINOPHEN TAB 650MG DOSE (2X325MG) PO ONE (23:25)
[2021-07-08] MEDS ORDERED: NIRM1TAB PO ×2 (01:23→01:30)
[2021-07-08 01:30] VITALS: BP 134/62
== END 2021-07-08 01:50 | disposition home or self-care (01) ==
LOC: M ED 13:16
DX: U07.1 COVID-19 (principal); R06.02 Shortness of breath; M54.31 Sciatica, right side; R07.9 Chest pain, unspecified; E11.9 Type 2 diabetes mellitus without complications; F17.200 Nicotine dependence, unspecified, uncomplicated; Z86.79 Personal history of other diseases of the circulatory system

== ENCOUNTER → 2021-10-07 | Outpatient (CLI) | payer MEDICARE ==
[~2021-10-07] MED LIST changes: +NIRM1TAB PO; +RANO500T2 PO
[2021-10-07 16:34] LABS: GLOMERULAR FILTRATION RATE 57.7 (>39)
== END ==
LOC: M WUC 13:58
PROVIDERS: ATTEND Surgery Vascular Surgery
DX: Z01.818 Encounter for other preprocedural examination (principal); D69.8 Other specified hemorrhagic conditions

== ENCOUNTER → 2021-10-09 | Outpatient (CLI) | payer MEDICARE ==
[~2021-10-09] MED LIST changes: +ISOVUE-370 76% 100ML VIAL As Ordered ONE
== END ==
LOC: M RAD 08:36
PROVIDERS: ATTEND Surgery Vascular Surgery
DX: I70.213 Atherosclerosis of native arteries of extremities with intermittent claudication, bilateral legs (principal)
CPT/HCPCS: 75635; Q9967

== ENCOUNTER → 2021-10-20 | Outpatient (CLI) | payer MEDICARE ==
[~2021-10-20] MED LIST changes: -ISOVUE-370 76% 100ML VIAL As Ordered ONE
[2021-10-20 16:06] LABS: CALCIUM LEVEL 9.7 MG/DL (8.8-10.2); CHOLESTEROL RISK RATIO 2.361 (<5); CREATININE FOR GFR 1.04 MG/DL (0.55-1.30); GLOMERULAR FILTRATION RATE 55.1 (>39); POTASSIUM SERUM 4.7 MEQ/L (3.5-5.1)
[2021-10-20 16:08] LABS: HEMOGLOBIN A1c 6.2 %
== END ==
LOC: M PLALAB 12:24
PROVIDERS: ATTEND Family Medicine
DX: E11.9 Type 2 diabetes mellitus without complications (principal); E78.2 Mixed hyperlipidemia; I10 Essential (primary) hypertension

== ENCOUNTER → 2022-02-17 | Outpatient (CLI) | payer MEDICARE ==
[2022-02-17 11:37] LABS: HEMATOCRIT 38.3 % (36.0-47.0); HEMOGLOBIN 12.3 g/dl (12.0-15.5); MEAN CORPUSCULAR HEMOGLOBIN 28.1 pg (27.0-33.0); MEAN CORPUSCULAR HGB CONC 32.1 g/dl (32.0-36.5); MEAN CORPUSCULAR VOLUME 87.6 fl (80.0-96.0); PLATELET COUNT, AUTOMATED 234 10^3/uL (150-450); RED BLOOD COUNT 4.37 10^6/uL (4.00-5.40); WHITE BLOOD COUNT 6.5 10^3/uL (4.0-10.0)
[2022-02-17 12:16] LABS: ALBUMIN 3.8 GM/DL (3.2-5.2); ALT/SGPT 14 U/L (12-78); BILIRUBIN,TOTAL 0.6 MG/DL (0.2-1.0); BLOOD UREA NITROGEN 20 MG/DL (7-18); CALCIUM LEVEL 9.2 MG/DL (8.8-10.2); CARBON DIOXIDE LEVEL 26 MEQ/L (21-32); CHLORIDE LEVEL 105 MEQ/L (98-107); CHOLESTEROL LEVEL 84 MG/DL (<200); CHOLESTEROL RISK RATIO 2.545 (<5); CREATININE FOR GFR 0.92 MG/DL (0.55-1.30); GLOMERULAR FILTRATION RATE > 60.0 (>39); GLUCOSE, FASTING 120 MG/DL (70-100); HDL CHOLESTEROL 33 MG/DL (>40); LDL CHOLESTEROL 33 MG/DL (<100); NON-HDL-C 51 MG/DL; POTASSIUM SERUM 4.1 MEQ/L (3.5-5.1); SODIUM LEVEL 137 MEQ/L (136-145); TOTAL PROTEIN 7.3 GM/DL (6.4-8.2); TRIGLYCERIDES LEVEL 88 MG/DL (<150)
== END ==
LOC: M PLALAB 02-16 14:25
PROVIDERS: ATTEND Nurse Practitioner Adult Health
DX: E78.2 Mixed hyperlipidemia (principal); E11.9 Type 2 diabetes mellitus without complications; I35.0 Nonrheumatic aortic (valve) stenosis

== ENCOUNTER → 2022-08-17 | Outpatient (CLI) | payer MEDICARE ==
[2022-08-17 16:09] LABS: HEMATOCRIT 36.1 % (36.0-47.0); HEMOGLOBIN 11.7 g/dl (12.0-15.5); MEAN CORPUSCULAR HEMOGLOBIN 28.2 pg (27.0-33.0); MEAN CORPUSCULAR HGB CONC 32.4 g/dl (32.0-36.5); PLATELET COUNT, AUTOMATED 221 10^3/uL (150-450); RED BLOOD COUNT 4.15 10^6/uL (4.00-5.40); WHITE BLOOD COUNT 7.8 10^3/uL (4.0-10.0)
[2022-08-17 16:45] LABS: CREATININE, URINE 138.9 MG/DL
[2022-08-17 16:46] LABS: MAU/CREAT RATIO 10.7 MCG/MG (0.0-30.0)
[2022-08-17 16:49] LABS: ALBUMIN 3.9 G/DL (3.2-5.2); ALKALINE PHOSPHATASE 77 U/L (46-116); ALT/SGPT < 9 U/L (7.0-40); AST/SGOT 14 U/L (<34); BILIRUBIN,TOTAL 0.7 MG/DL (0.3-1.2); BLOOD UREA NITROGEN 16 MG/DL (9-23); CALCIUM LEVEL 9.4 MG/DL (8.3-10.6); CARBON DIOXIDE LEVEL 27 MMOL/L (20-31); CHLORIDE LEVEL 105 MMOL/L (98-107); CHOLESTEROL LEVEL 92 MG/DL (<200); CREATININE FOR GFR 0.96 MG/DL (0.55-1.30); GLOMERULAR FILTRATION RATE > 60.0 (>39); GLUCOSE, FASTING 107 MG/DL (74-106); HDL CHOLESTEROL 32.8 MG/DL (>40); NON-HDL-C 59.2 MG/DL; POTASSIUM SERUM 4.6 MMOL/L (3.5-5.1); SODIUM LEVEL 139 MMOL/L (136-145); TOTAL PROTEIN 7.1 G/DL (5.7-8.2); TRIGLYCERIDES LEVEL 101 MG/DL (<150)
[2022-08-17 17:06] LABS: HEMOGLOBIN A1c 6.2 % (4.0-6.0)
== END ==
LOC: M PLALAB 14:27
PROVIDERS: ATTEND Nurse Practitioner Adult Health
DX: I35.0 Nonrheumatic aortic (valve) stenosis (principal); E78.2 Mixed hyperlipidemia; E11.9 Type 2 diabetes mellitus without complications

== ENCOUNTER → 2022-10-16 | Outpatient (CLI) | payer MEDICARE | LOC: M RAD 12:10 | PROVIDERS: ATTEND Nurse Practitioner Adult Health | DX: Z87.891 Personal history of nicotine dependence (principal) ==

== ENCOUNTER → 2022-11-05 | Outpatient (CLI) | payer MEDICARE | LOC: M RAD 10:01 | PROVIDERS: ATTEND Surgery Vascular Surgery | DX: I65.23 Occlusion and stenosis of bilateral carotid arteries (principal) ==

== ENCOUNTER → 2023-01-11 | Outpatient (CLI) | payer MEDICARE, MEDICAID | LOC: M PLARAD 11:43 | PROVIDERS: ATTEND Nurse Practitioner Adult Health | DX: R91.8 Other nonspecific abnormal finding of lung field (principal) | CPT/HCPCS: 78815; A9552 ==

== ENCOUNTER → 2023-03-24 | Outpatient (CLI) | payer OTHER, MEDICAID ==
[~2023-03-24] MED LIST changes: -ATOR40TA75; +ATOR40TA75 PO; +BISO10TA14 PO; -CLOP75TA2; +CLOP75TA2 PO; +HOME MED LIST COMPLETE! XX SCH; -ISOS1TAB35; +ISOS1TAB35 PO; +LIDOCAINE 1% MDV 20ML VIAL As Ordered ONE; -METF-838; +METF-838 PO; -NITR0.4S14; +NITR0.4S14 SL; +TRAZ-252 PO
[2023-03-24 07:52] VITALS: TEMP 98.4
[2023-03-24 08:19] LABS: HEMATOCRIT 34.4 % (36.0-47.0); HEMOGLOBIN 11.4 g/dl (12.0-15.5); MEAN CORPUSCULAR HEMOGLOBIN 28.1 pg (27.0-33.0); MEAN CORPUSCULAR HGB CONC 33.1 g/dl (32.0-36.5); MEAN CORPUSCULAR VOLUME 84.7 fl (80.0-96.0); PLATELET COUNT, AUTOMATED 231 10^3/uL (150-450); RED BLOOD COUNT 4.06 10^6/uL (4.00-5.40); WHITE BLOOD COUNT 7.9 10^3/uL (4.0-10.0)
[2023-03-24 08:34] LABS: INR 1.03; PROTHROMBIN TIME 13.2 SECONDS (12.5-14.5)
[2023-03-24 12:00] VITALS: BP 141/62; O2SAT 97
== END ==
LOC: M IRPRO 07:38
PROVIDERS: ATTEND Nurse Practitioner Adult Health
DX: C34.12 Malignant neoplasm of upper lobe, left bronchus or lung (principal); R91.8 Other nonspecific abnormal finding of lung field

== ENCOUNTER → 2023-04-05 | Outpatient (REF) | payer OTHER, MEDICAID ==
[~2023-04-05] MED LIST changes: -HOME MED LIST COMPLETE! XX SCH; -LIDOCAINE 1% MDV 20ML VIAL As Ordered ONE
[2023-04-05 18:05] LABS: HEMATOCRIT 38.6 % (36.0-47.0); HEMOGLOBIN 12.5 g/dl (12.0-15.5); MEAN CORPUSCULAR HEMOGLOBIN 27.7 pg (27.0-33.0); MEAN CORPUSCULAR HGB CONC 32.4 g/dl (32.0-36.5); MEAN CORPUSCULAR VOLUME 85.6 fl (80.0-96.0); PLATELET COUNT, AUTOMATED 264 10^3/uL (150-450); RED BLOOD COUNT 4.51 10^6/uL (4.00-5.40)
[2023-04-05 18:18] LABS: HEMOGLOBIN A1c 5.4 % (4.0-6.0)
[2023-04-05 18:29] LABS: ALBUMIN 3.8 G/DL (3.2-5.2); BILIRUBIN,TOTAL 0.3 MG/DL (0.3-1.2); CALCIUM LEVEL 9.7 MG/DL (8.3-10.6); CREATININE FOR GFR 1.08 MG/DL (0.55-1.30); GLOMERULAR FILTRATION RATE 52.7 (>39); POTASSIUM SERUM 4.4 MMOL/L (3.5-5.1); TOTAL PROTEIN 7.1 G/DL (5.7-8.2)
[2023-04-05 18:31] LABS: FERRITIN 48.2 NG/ML (7.3-270.7)
== END ==
LOC: M SFHCPLAZ 17:13
PROVIDERS: ATTEND Nurse Practitioner Adult Health
DX: E78.2 Mixed hyperlipidemia (principal); E11.51 Type 2 diabetes mellitus with diabetic peripheral angiopathy without gangrene

== ENCOUNTER → 2023-04-16 | Outpatient (CLI) | payer OTHER, MEDICAID ==
[~2023-04-16] MED LIST changes: +PANT40TA29
== END ==
LOC: M ONCR 14:32
PROVIDERS: ATTEND General Practice
DX: C34.12 Malignant neoplasm of upper lobe, left bronchus or lung (principal); F17.210 Nicotine dependence, cigarettes, uncomplicated; Z71.2 Person consulting for explanation of examination or test findings; Z79.02 Long term (current) use of antithrombotics/antiplatelets; Z79.84 Long term (current) use of oral hypoglycemic drugs; Z79.899 Other long term (current) drug therapy; Z80.1 Family history of malignant neoplasm of trachea, bronchus and lung; Z80.3 Family history of malignant neoplasm of breast; Z90.710 Acquired absence of both cervix and uterus; Z90.722 Acquired absence of ovaries, bilateral; Z90.79 Acquired absence of other genital organ(s)
CPT/HCPCS: 99406; G0463

== ENCOUNTER 2023-04-27 10:24 | Outpatient (RCR) | payer OTHER, MEDICAID | END 2023-05-06 | LOC: M ONCR 10:24 | PROVIDERS: ATTEND General Practice | DX: Z51.0 Encounter for antineoplastic radiation therapy (principal); C34.12 Malignant neoplasm of upper lobe, left bronchus or lung ==

== ENCOUNTER → 2023-05-10 | Outpatient (CLI) | payer OTHER, MEDICAID ==
[~2023-05-10] VITALS: Ht 165.1 cm; Wt 69.0 kg
[~2023-05-10] MED LIST changes: +LIDOCAINE 1% MDV 20ML VIAL As Ordered ONE; +LIDOCAINE W/EPINEPHRINE 1% 20ML VIAL As Ordered ONE; +MIDAZOLAM INJ 2MG/2ML VIAL As Ordered ONE; +NS 1,000 ML IV SCH; +ceFAZolin 2 GM/D5W 50 ML IV BAG As Ordered ONE; +ceFAZolin SOD 2 GM in IV 1 EA IV ONE; +fentaNYL 100 MCG/2 ML INJECTION As Ordered ONE
[2023-05-10 08:45] VITALS: TEMP 97.6
[2023-05-10 11:45] VITALS: BP 141/61; O2SAT 99
== END ==
LOC: M IRPRO 08:37
PROVIDERS: ATTEND Internal Medicine Hematology & Oncology
DX: C34.12 Malignant neoplasm of upper lobe, left bronchus or lung (principal)
CPT/HCPCS: 36571; 99152; 99153; C1894; J0690; J2250; J3010

== ENCOUNTER 2023-06-04 10:41 | Outpatient (RCR) | payer OTHER, MEDICAID ==
[~2023-06-04 10:41] MED LIST changes: +LIDO30CR18 TOP; -LIDOCAINE 1% MDV 20ML VIAL As Ordered ONE; -LIDOCAINE W/EPINEPHRINE 1% 20ML VIAL As Ordered ONE; -MIDAZOLAM INJ 2MG/2ML VIAL As Ordered ONE; -NS 1,000 ML IV SCH; +ONDA4TAB6 PO; +ONDANSETRON 4MG ORAL DISINTEGRATING TAB PO ONE; +PROC10TA5 PO; -ceFAZolin 2 GM/D5W 50 ML IV BAG As Ordered ONE; -ceFAZolin SOD 2 GM in IV 1 EA IV ONE; -fentaNYL 100 MCG/2 ML INJECTION As Ordered ONE
[2023-06-10] MEDS ORDERED: ONDA4TAB6 PO (14:29)
[2023-06-10] MEDS ORDERED: PROC10TA5 PO (14:29)
== END 2023-06-06 ==
LOC: M ONCR 10:41
PROVIDERS: ATTEND General Practice
DX: Z51.0 Encounter for antineoplastic radiation therapy (principal); C34.12 Malignant neoplasm of upper lobe, left bronchus or lung

== ENCOUNTER 2023-06-28 12:24 | Emergency (ER) | payer OTHER, MEDICAID ==
[~2023-06-28] VITALS: Ht 167.6 cm; Wt 68.2 kg
[~2023-06-28 12:24] MED LIST changes: +MAGN400T2 PO; -ONDANSETRON 4MG ORAL DISINTEGRATING TAB PO ONE
[2023-06-28] MEDS ORDERED: FAMOTIDINE 20MG/2ML VIAL IVP ONE (14:50)
[2023-06-28] MEDS ORDERED: NS 1,000 ML IV ONE (14:50)
[2023-06-28] MEDS ORDERED: ONDANSETRON 4MG 2ML VIAL IV ONE (14:50)
[2023-06-28 15:07] LABS: ALBUMIN 2.9 G/DL (3.2-5.2); BILIRUBIN,DIRECT 0.6 MG/DL (<0.4); CALCIUM LEVEL 9.1 MG/DL (8.3-10.6); CREATININE FOR GFR 1.5 MG/DL (0.55-1.30); POTASSIUM SERUM 3.9 MMOL/L (3.5-5.1); TOTAL PROTEIN 6.7 G/DL (5.7-8.2)
[2023-06-28 15:11] LABS: BASO % 0.1 % (0.0-1.0); HEMATOCRIT 30.7 % (36.0-47.0); HEMOGLOBIN 10.1 g/dl (12.0-15.5); LYMPH # 0.4 10^3/uL (1.5-5.0); LYMPH % 4.3 % (24.0-44.0); MEAN CORPUSCULAR HEMOGLOBIN 28.5 pg (27.0-33.0); MEAN CORPUSCULAR HGB CONC 32.9 g/dl (32.0-36.5); MEAN CORPUSCULAR VOLUME 86.5 fl (80.0-96.0); MONO # 0.6 10^3/uL (0.0-0.8); MONO % 5.8 % (2.0-8.0); NEUTROPHILS # 8.5 10^3/uL (1.5-8.5); NEUTROPHILS % 87.3 % (36.0-66.0); PLATELET COUNT, AUTOMATED 237 10^3/uL (150-450); RED BLOOD COUNT 3.55 10^6/uL (4.00-5.40); WHITE BLOOD COUNT 9.8 10^3/uL (4.0-10.0)
[2023-06-28 16:17] LABS: RSV AMPLIFICATION NEGATIVE (NEGATIVE)
[2023-06-28 17:04] VITALS: BP 91/54; TEMP 99.2; O2SAT 97
[2023-07-01] MEDS ORDERED: ONDA4TAB6 PO (12:21)
== END 2023-06-28 17:14 | disposition home or self-care (01) ==
LOC: M ED 12:24
DX: R11.2 Nausea with vomiting, unspecified (principal); I10 Essential (primary) hypertension; E11.9 Type 2 diabetes mellitus without complications; Z87.891 Personal history of nicotine dependence; Z86.79 Personal history of other diseases of the circulatory system; Z88.2 Allergy status to sulfonamides; Z79.02 Long term (current) use of antithrombotics/antiplatelets; Z79.811 Long term (current) use of aromatase inhibitors; Z79.4 Long term (current) use of insulin; Z79.899 Other long term (current) drug therapy
CPT/HCPCS: 74021; 80048; 80076; 83690; 85025; 87631; 93041; 96361; 96374; 99284; J2405

== ENCOUNTER 2023-07-02 11:24 | Outpatient (RCR) | payer OTHER, MEDICAID ==
[~2023-07-02 11:24] MED LIST changes: +ONDANSETRON 4MG ORAL DISINTEGRATING TAB PO ONE
[2023-07-02] MEDS ORDERED: ONDANSETRON 4MG ORAL DISINTEGRATING TAB PO ONE (13:10)
[2023-07-02] MEDS ORDERED: dexAMETHasone 20MG/5ML VIAL IV ONE (13:10)
[2023-07-02] MEDS ORDERED: NS 1,000 ML IV ONE (13:10)
[2023-07-02] MEDS ORDERED: POTASSIUM CHLORIDE 10MEQ SR TABLET PO ONE (13:10)
== END 2023-07-07 ==
LOC: M ONCR 11:24
PROVIDERS: ATTEND General Practice
DX: Z51.0 Encounter for antineoplastic radiation therapy (principal); C34.12 Malignant neoplasm of upper lobe, left bronchus or lung
CPT/HCPCS: 77336; 77386; J1100

== ENCOUNTER → 2023-08-23 | Outpatient (CLI) | payer OTHER, MEDICAID ==
[~2023-08-23] MED LIST changes: +ISOVUE-370 76% 100ML VIAL As Ordered ONE; -ONDANSETRON 4MG ORAL DISINTEGRATING TAB PO ONE
== END ==
LOC: M RAD 10:18
PROVIDERS: ATTEND Specialist
DX: C34.90 Malignant neoplasm of unspecified part of unspecified bronchus or lung (principal)
CPT/HCPCS: 71260; Q9967

== ENCOUNTER → 2023-11-18 | Outpatient (CLI) | payer OTHER, MEDICAID ==
[~2023-11-18] MED LIST changes: +ONDA-282 PO; -ONDA4TAB6 PO
== END ==
LOC: M RAD 11:23
PROVIDERS: ATTEND Specialist
DX: C34.90 Malignant neoplasm of unspecified part of unspecified bronchus or lung (principal)
CPT/HCPCS: 70491; Q9967

== ENCOUNTER → 2023-12-01 | Outpatient (CLI) | payer OTHER, MEDICAID | LOC: M RAD 09:43 | PROVIDERS: ATTEND Physician Assistant | DX: I77.9 Disorder of arteries and arterioles, unspecified (principal); R93.1 Abnormal findings on diagnostic imaging of heart and coronary circulation ==

== ENCOUNTER → 2023-12-01 | Outpatient (CLI) | payer OTHER, MEDICAID ==
[~2023-12-01] MED LIST changes: +BACT800T5 PO; -ISOVUE-370 76% 100ML VIAL As Ordered ONE
== END ==
LOC: M RAD 09:42
PROVIDERS: ATTEND Specialist
DX: C34.12 Malignant neoplasm of upper lobe, left bronchus or lung (principal); I77.9 Disorder of arteries and arterioles, unspecified; R93.1 Abnormal findings on diagnostic imaging of heart and coronary circulation
CPT/HCPCS: 71260; 93880; Q9967

== ENCOUNTER → 2024-01-04 | Outpatient (CLI) | payer OTHER, MEDICAID | LOC: M ONCR 13:35 | PROVIDERS: ATTEND General Practice | DX: C34.11 Malignant neoplasm of upper lobe, right bronchus or lung (principal); Z79.84 Long term (current) use of oral hypoglycemic drugs; Z79.61 Long term (current) use of immunomodulator; Z79.899 Other long term (current) drug therapy; Z88.1 Allergy status to other antibiotic agents; Z88.8 Allergy status to other drugs, medicaments and biological substances; Z87.891 Personal history of nicotine dependence; Z92.21 Personal history of antineoplastic chemotherapy; Z92.3 Personal history of irradiation ==

== ENCOUNTER → 2024-07-04 | Outpatient (CLI) | payer MEDICARE, MEDICAID ==
[~2024-07-04] MED LIST changes: +ISOVUE-370 76% 100ML VIAL As Ordered ONE
== END ==
LOC: M RAD 10:33
PROVIDERS: ATTEND Nurse Practitioner Women's Health
DX: C34.90 Malignant neoplasm of unspecified part of unspecified bronchus or lung (principal); K59.00 Constipation, unspecified; Z90.79 Acquired absence of other genital organ(s); N20.0 Calculus of kidney
CPT/HCPCS: 71260; 74177; Q9967

== ENCOUNTER → 2024-07-06 | Outpatient (CLI) | payer MEDICARE, MEDICAID ==
[~2024-07-06] MED LIST changes: -ISOVUE-370 76% 100ML VIAL As Ordered ONE
== END ==
LOC: M ONCR 14:08
PROVIDERS: ATTEND General Practice
DX: C34.12 Malignant neoplasm of upper lobe, left bronchus or lung (principal); J84.10 Pulmonary fibrosis, unspecified; Z87.891 Personal history of nicotine dependence; Z88.1 Allergy status to other antibiotic agents; Z88.2 Allergy status to sulfonamides; Z79.02 Long term (current) use of antithrombotics/antiplatelets; Z79.620 Long term (current) use of immunosuppressive biologic; Z79.84 Long term (current) use of oral hypoglycemic drugs; Z79.899 Other long term (current) drug therapy; Z92.21 Personal history of antineoplastic chemotherapy; Z92.3 Personal history of irradiation

== ENCOUNTER → 2024-07-17 | Outpatient (CLI) | payer MEDICARE, MEDICAID | LOC: M PLARAD 07:33 | PROVIDERS: ATTEND General Practice | DX: C34.12 Malignant neoplasm of upper lobe, left bronchus or lung (principal) | CPT/HCPCS: 78815; A9552 ==

== ENCOUNTER → 2024-08-02 | Outpatient (CLI) | payer MEDICARE, MEDICAID | LOC: M ONCR 14:11 | PROVIDERS: ATTEND General Practice | DX: C34.92 Malignant neoplasm of unspecified part of left bronchus or lung (principal); Z71.2 Person consulting for explanation of examination or test findings; Z92.21 Personal history of antineoplastic chemotherapy ==

== ENCOUNTER → 2024-08-29 | Outpatient (CLI) | payer MEDICARE, MEDICAID ==
[~2024-08-29] VITALS: Ht 168.9 cm; Wt 74.6 kg
[~2024-08-29] MED LIST changes: +MORP20SO PO
[2024-08-29 09:59] VITALS: BP 126/64; O2SAT 97
== END ==
LOC: M PAL 09:20
PROVIDERS: ATTEND Physician Assistant
DX: Z51.5 Encounter for palliative care (principal); C34.90 Malignant neoplasm of unspecified part of unspecified bronchus or lung; Z66 Do not resuscitate; Z92.3 Personal history of irradiation; Z92.21 Personal history of antineoplastic chemotherapy; Z79.891 Long term (current) use of opiate analgesic; Z88.8 Allergy status to other drugs, medicaments and biological substances; Z79.899 Other long term (current) drug therapy; Z92.25 Personal history of immunosuppression therapy

== ENCOUNTER → 2024-09-12 | Outpatient (CLI) | payer MEDICARE, MEDICAID ==
[~2024-09-12] VITALS: Ht 167.6 cm; Wt 74.7 kg
[2024-09-12 09:30] VITALS: BP 165/70; O2SAT 97
== END ==
LOC: M PAL 09:25
PROVIDERS: ATTEND Physician Assistant
DX: Z51.5 Encounter for palliative care (principal); Z66 Do not resuscitate; C34.90 Malignant neoplasm of unspecified part of unspecified bronchus or lung; Z92.3 Personal history of irradiation; Z92.21 Personal history of antineoplastic chemotherapy; Z92.26 Personal history of immune checkpoint inhibitor therapy; Z79.891 Long term (current) use of opiate analgesic; Z79.899 Other long term (current) drug therapy; Z88.2 Allergy status to sulfonamides; Z88.8 Allergy status to other drugs, medicaments and biological substances

== ENCOUNTER → 2024-09-25 | Outpatient (CLI) | payer MEDICARE, MEDICAID ==
[~2024-09-25] VITALS: Ht 167.6 cm; Wt 74.1 kg
[~2024-09-25] MED LIST changes: +DEBR6.5S4 OTIC
[2024-09-25 10:23] VITALS: BP 144/63; O2SAT 96
== END ==
LOC: M PAL 09:16
PROVIDERS: ATTEND Physician Assistant
DX: Z51.5 Encounter for palliative care (principal); C34.90 Malignant neoplasm of unspecified part of unspecified bronchus or lung; H61.22 Impacted cerumen, left ear; Z66 Do not resuscitate; Z92.21 Personal history of antineoplastic chemotherapy; Z92.3 Personal history of irradiation; Z92.29 Personal history of other drug therapy; Z79.02 Long term (current) use of antithrombotics/antiplatelets; Z79.899 Other long term (current) drug therapy; Z88.1 Allergy status to other antibiotic agents; Z88.2 Allergy status to sulfonamides

== ENCOUNTER → 2024-10-25 | Outpatient (CLI) | payer MEDICARE, MEDICAID ==
[~2024-10-25] VITALS: Ht 168.9 cm; Wt 72.4 kg
[2024-10-25 09:48] VITALS: BP 131/60; O2SAT 96
== END ==
LOC: M PAL 09:33
PROVIDERS: ATTEND Physician Assistant
DX: Z51.5 Encounter for palliative care (principal); C34.90 Malignant neoplasm of unspecified part of unspecified bronchus or lung; Z66 Do not resuscitate; Z92.21 Personal history of antineoplastic chemotherapy; Z92.3 Personal history of irradiation; Z79.61 Long term (current) use of immunomodulator; Z79.891 Long term (current) use of opiate analgesic; Z88.2 Allergy status to sulfonamides; Z88.8 Allergy status to other drugs, medicaments and biological substances; Z79.899 Other long term (current) drug therapy

== ENCOUNTER → 2024-12-26 | Outpatient (CLI) | payer MEDICARE, MEDICAID ==
[~2024-12-26] VITALS: Ht 168.9 cm; Wt 69.4 kg
[2024-12-26 10:00] VITALS: BP 136/60; O2SAT 98
== END ==
LOC: M PAL 09:28
PROVIDERS: ATTEND Physician Assistant
DX: Z51.5 Encounter for palliative care (principal); Z66 Do not resuscitate; C34.90 Malignant neoplasm of unspecified part of unspecified bronchus or lung; C78.00 Secondary malignant neoplasm of unspecified lung; Z92.23 Personal history of estrogen therapy; Z92.25 Personal history of immunosuppression therapy; Z92.21 Personal history of antineoplastic chemotherapy; Z79.891 Long term (current) use of opiate analgesic; Z88.2 Allergy status to sulfonamides; Z88.8 Allergy status to other drugs, medicaments and biological substances; Z79.899 Other long term (current) drug therapy; Z79.02 Long term (current) use of antithrombotics/antiplatelets; Z79.84 Long term (current) use of oral hypoglycemic drugs

== ENCOUNTER 2025-02-07 14:21 | Observation (INO) | payer MEDICARE, MEDICAID ==
[~2025-02-07] VITALS: Ht 170.2 cm; Wt 67.4 kg
[2025-02-07] MEDS: ONDANSETRON 4MG/2ML VIAL IV ONE (16:28)
[2025-02-07] MEDS: MORPHINE 4 MG/ML 1 ML VIAL IV PRN (16:29)
[2025-02-07] MEDS ORDERED: MORPHINE 2 MG/ML 1 ML VIAL IV PRN (17:00)
[2025-02-07] MEDS ORDERED: ATROPINE SULFATE 1% OPHTH SOLN 2 ML BTL SL PRN (17:00)
[2025-02-07] MEDS ORDERED: ACETAMINOPHEN 325 MG TAB PO PRN (17:00)
[2025-02-07] MEDS ORDERED: SCOPOLAMINE 1MG TRANSDERMAL PATCH TOP PRN (17:00)
[2025-02-07 20:30] VITALS: BP 117/76; TEMP 97.3; O2SAT 96
[2025-02-07] MEDS: ONDANSETRON 4MG/2ML VIAL IV PRN (20:50)
[2025-02-07 21:42] VITALS: O2SAT 97
[2025-02-08 08:00] VITALS: BP 130/68; TEMP 97.3
[2025-02-08] MEDS ORDERED: SENNA 8.6 MG TAB PO PRN (14:40)
[2025-02-08] MEDS ORDERED: POLYVINYL ALCOHOL OPHTH SOLN 15ML (LIQUITEARS) OU PRN (14:40)
[2025-02-08] MEDS ORDERED: SALIVA SUBSTITUTE BTL MT PRN (14:40)
[2025-02-08] MEDS ORDERED: HYOSCYAMINE SULFATE 0.125 MG SUBL TABLET SL PRN (14:40)
[2025-02-08] MEDS ORDERED: ACETAMINOPHEN 325 MG TAB PO PRN (14:40)
[2025-02-08] MEDS ORDERED: MIRALAX *UNIT DOSE* 17 GM PACKET PO PRN (14:40)
[2025-02-08] MEDS: ONDANSETRON 4MG ORAL DISINTEGRATING TAB PO SCH (21:44)
[2025-02-08] MEDS: traZODone 50 MG TAB PO SCH (21:45)
[2025-02-09] MEDS: ONDANSETRON 4MG ORAL DISINTEGRATING TAB PO PRN (18:09)
[2025-02-10] MEDS: LORazepam 1 MG TAB PO PRN (16:27)
[2025-02-10] MEDS: MORPHINE 10 MG/0.5 ML ORAL CONCENTRATE SOLUTION U/D SL PRN (16:27)
[2025-02-13 06:21] VITALS: BP 130/68; TEMP 97.3; O2SAT 97
[2025-02-15] MEDS: ATROPINE SULFATE 1% OPHTH SOLN 2 ML BTL SL PRN (02:38)
== END 2025-02-15 08:10 | disposition expired ==
LOC: M ED 14:21 → M ED INP 17:00 → INTOOBSV 17:00 → M MS5PR 20:30 → M MSPAV 02-13 14:05
PROVIDERS: ADMIT Internal Medicine; ATTEND Internal Medicine
DX: Z51.5 Encounter for palliative care (principal); Z66 Do not resuscitate; R07.89 Other chest pain; R11.0 Nausea; C34.12 Malignant neoplasm of upper lobe, left bronchus or lung; I35.0 Nonrheumatic aortic (valve) stenosis; I65.22 Occlusion and stenosis of left carotid artery; E78.5 Hyperlipidemia, unspecified; I10 Essential (primary) hypertension; H35.30 Unspecified macular degeneration; I25.10 Atherosclerotic heart disease of native coronary artery without angina pectoris; M85.80 Other specified disorders of bone density and structure, unspecified site; F32.A Depression, unspecified; R57.1 Hypovolemic shock; J96.01 Acute respiratory failure with hypoxia; R62.7 Adult failure to thrive; I73.9 Peripheral vascular disease, unspecified; H54.8 Legal blindness, as defined in USA; Z92.21 Personal history of antineoplastic chemotherapy; Z92.3 Personal history of irradiation; Z87.891 Personal history of nicotine dependence; Z79.899 Other long term (current) drug therapy; Z86.73 Personal history of transient ischemic attack (TIA), and cerebral infarction without residual deficits; Z88.2 Allergy status to sulfonamides; Z88.8 Allergy status to other drugs, medicaments and biological substances
CPT/HCPCS: 93005; 96374; 96375; 96376; 99284; G0378; J2060; J2405; J2550